=== PATIENT | male | born 1965 | race Caucasian/White ===

== ENCOUNTER 2019-03-11 10:00 | Day surgery (SDC) | payer MEDICAID ==
[2019-03-11] MEDS ORDERED: LIDOCAINE 1% 20 ML VIAL (10MG/ML) FOR IV START INTRADERMA PRN (10:22)
[2019-03-11] MEDS ORDERED: LACTATED RINGERS 1,000 ML IV SCH (10:22)
[2019-03-11 10:28] VITALS: RESP 18; TEMP 98.1
[2019-03-11] MEDS ORDERED: PROPOFOL 10 MG/ML 20 ML VIAL IV ONE (12:02)
--- NOTE | 2019-03-11 12:45 | P.PCN ---
Date of Procedure: 03/11/19 Description of Procedure: BRIEF HISTORY: Patient is a 53-year-old pleasant male scheduled for an elective colonoscopy as a part of surveillance after positive testing with cologard. Denies any change in bowel habits, blood per rectum or abdominal pain. No prior colonoscopy reported. Does report colon polyps in his brother. PROCEDURE PERFORMED: Colonoscopy. PREOPERATIVE DIAGNOSIS: Positive cologard, no prior colonoscopy. ESTIMATED BLOOD LOSS: Minimal. IV sedation per Anesthesia. PROCEDURE: After informed consent was obtained, the patient, was brought into the endoscopy unit. IV sedation was administered by Anesthesia under continuous monitoring. Digital rectal examination was normal. Initially the Olympus CF-190 flexible video colonoscope was then inserted in the rectum, gradually advanced into the cecum without any difficulty. Careful examination was performed as the scope was gradually being withdrawn. Ileocecal valve and the appendiceal orifice were visualized and appeared normal. Prep was good. Mucosa of the cecum, ascending colon, transverse colon, descending colon, sigmoid colon, and rectum appeared normal. 2 diminutive 2 mm cecal polyps removed with cold forceps polypectomy. One small 3 mm sessile transverse colon polyp removed with cold forceps polypect oleg. One diminutive 2 mm sessile descending colon polyp removed with cold forcep polypectomy. One sessile 6 mm ascending colon polyp removed with cold snare polypectomy. 2 diminutive 2 mm sessile sigmoid polyp. A few small mouth diverticula scattered throughout the colon. Retroflexion was performed in the rectum and no lesions were seen. The patient tolerated the procedure well. IMPRESSION: 7 small 2 diminutive polyps in the colon removed with a combination of cold forceps or cold snare (please see body of note for location). Mild pandiverticulosis. RECOMMENDATIONS: Findings of this examination were discussed with the patient and his partner. Okay to resume high-fiber diet. Await pathology from polypectomy. Anticipate repeat colonoscopy in 3 years pending pathology from polypectomies.
[2019-03-11 13:11] VITALS: BP 138/85; PULSE 65
== END 2019-03-11 13:16 | disposition home or self-care (01) ==
LOC: ORWHC2ENDO 10:00
PROVIDERS: ATTEND Internal Medicine
DX: D12.0 Benign neoplasm of cecum (principal); D12.3 Benign neoplasm of transverse colon; D12.4 Benign neoplasm of descending colon; K63.5 Polyp of colon; K57.30 Diverticulosis of large intestine without perforation or abscess without bleeding; F17.200 Nicotine dependence, unspecified, uncomplicated
CPT/HCPCS: 88305; 45380; 45385; J2704